=== PATIENT | female | born 1960 | race Caucasian/White ===

== ENCOUNTER → 2025-10-13 16:26 | Outpatient (BNV) | payer MEDICARE, SELFPAY | PROVIDERS: Admitting Provider Psychiatry & Neurology Forensic Psychiatry; Visit Provider Psychiatry & Neurology Forensic Psychiatry | DX: F20.9 Schizophrenia, unspecified (principal); I10 Essential (primary) hypertension | CPT/HCPCS: 99232 ==

== ENCOUNTER → 2025-10-13 16:26 | Outpatient (BNV) | payer MEDICARE, SELFPAY | PROVIDERS: Admitting Provider Psychiatry & Neurology Forensic Psychiatry; Visit Provider Nurse Practitioner Family | DX: I10 Essential (primary) hypertension (principal) | CPT/HCPCS: 99221 ==

== ENCOUNTER → 2025-10-13 16:26 | Outpatient (BNV) | payer MEDICARE, SELFPAY | PROVIDERS: Admitting Provider Psychiatry & Neurology Forensic Psychiatry; Visit Provider Surgery | DX: L72.0 Epidermal cyst (principal) | CPT/HCPCS: 99222; 99231 ==